=== PATIENT | female | born 1955 | race Caucasian/White ===

== ENCOUNTER 2017-11-16 16:33 | Emergency (ER) | payer OTHER ==
[~2017-11-16] VITALS: Ht 160 cm; Wt 96.0 kg
[~2017-11-16 16:33] MED LIST: ALAV10TA10 PO; HYDR25TA5 PO; LOVA20TA PO; MEDR4PAK PO; OMEP20TA93 PO; PROZ20CA11 PO
[2017-11-16 16:35] VITALS: BP 145/75; PULSE 78; RESP 18; TEMP 97.8; O2SAT 97
[2017-11-16] MEDS ORDERED: ROBA500T PO (17:06)
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
== END 2017-11-16 17:16 | disposition home or self-care (01) ==
LOC: PHEFT 16:33
DX: S13.4XXA Sprain of ligaments of cervical spine, initial encounter (principal); M62.830 Muscle spasm of back; M54.5 Low back pain; S90.32XA Contusion of left foot, initial encounter; M25.561 Pain in right knee; K21.9 Gastro-esophageal reflux disease without esophagitis; I10 Essential (primary) hypertension; E07.9 Disorder of thyroid, unspecified; V43.62XA Car passenger injured in collision with other type car in traffic accident, initial encounter
CPT/HCPCS: 99282; L0150